=== PATIENT | female | born 1960 | race Caucasian/White ===

== ENCOUNTER 2020-03-20 10:48 | Outpatient (CLI) | payer OTHER, SELFPAY ==
--- NOTE | 2020-03-20 10:54 | MM_ITS ---
WS: [id number] BILATERAL DIGITAL SCREENING MAMMOGRAM WITH CAD CLINICAL INFORMATION: SCREENING HISTORY: Screening mammogram. No current complaints. COMPARISON: March 06, 2019 TECHNIQUE: Bilateral CC and MLO views. FINDINGS: Fatty-replaced breasts bilaterally. No suspicious focal mass, asymmetry, calcifications, or architecture manager ural distortion. No evidence of malignancy. MM/[place] [id number] IMPRESSION: BI-RADS: 1-Negative FOLLOW UP: 1 Year Follow-up Recommend return to annual screening mammography.
== END 2020-03-20 10:49 | disposition home or self-care (01) ==
LOC: RADSHAW 10:53
PROVIDERS: PCP Nurse Practitioner Family; Visit Provider Nurse Practitioner Family
DX: Z12.31 Encounter for screening mammogram for malignant neoplasm of breast (principal)
CPT/HCPCS: 77067

== ENCOUNTER 2021-03-26 12:37 | Outpatient (CLI) | payer OTHER, SELFPAY ==
--- NOTE | 2021-03-26 13:05 | MM_ITS ---
WS: [id number] BILATERAL SCREENING DIGITAL MAMMOGRAM WITH CAD HISTORY: SCREENING COMPARISON: 03/20/2020 and 03/06/2019 Bilateral CC and MLO views submitted. Computer aided detection analyzed. Breast composition: The breasts are almost entirely fatty. No suspicious masses, microcalcifications or architectural distortion. MM/[place] [id number] IMPRESSION: BI-RADS: 1-Negative FOLLOW UP: 1 Year Follow-up
== END 2021-03-26 12:38 | disposition home or self-care (01) ==
LOC: RADSHAW 12:40
PROVIDERS: PCP Nurse Practitioner Family; Visit Provider Nurse Practitioner Family
DX: Z12.31 Encounter for screening mammogram for malignant neoplasm of breast (principal)
CPT/HCPCS: 77067

== ENCOUNTER 2022-02-24 10:55 | Outpatient (CLI) | payer OTHER, SELFPAY ==
--- NOTE | 2022-02-24 11:13 | XR_ITS ---
WS: [id number] Exam: XR cervical spine 4-5V [id number] Date/Time of Exam: 02/24/2022 11:18 AM Reason For Exam: CERVICAL PAIN/CERVICALGIA No acute fracture or dislocation. Degenerative disc narrowing and spondylosis from C4 to C7. Facet DJ D at all levels. Degenerative retrolisthesis of C5 on C6. Posterior osteophytes involving the fourth through the 6 cervical vertebra. There is straightening and reversal of the normal cervical C curve. There is narrowing of the left intervertebral foramina at C2-3, C3-4, C4-5 and C5-6. Narrowing of the right neural foramina at C4-5 and C5-6. This is secondary to uncovertebral spurring. Normal paraspin al soft tissue structures. The odontoid is intact. XR/XR cervical spine 4-5V [id number] IMPRESSION: 1. No acute fracture or dislocation. 2. Straightening and reversal of the normal cervical C curve. 3. Moderately advanced degenerative changes. 4. Narrowing of multiple intervertebral foramina as detailed above. This is mos t marked on the left.
--- NOTE | 2022-02-24 11:13 | XR_ITS ---
WS: [email or web address] Exam: XR shoulder LT min 2V* [id number] Date/Time of Exam: 02/24/2022 11:18 AM Reason For Exam: PAIN IN LEFT SHOULDER No fracture or dislocation noted. There is arthrosis at the AC joint. Normal soft tissues. XR/XR shoulder LT min 2V* [id number] IMPRESSION: 1. AC joint arthrosis. 2. No fracture or dislocation.
== END 2022-02-24 10:56 | disposition home or self-care (01) ==
PROVIDERS: PCP Nurse Practitioner Family; Visit Provider Nurse Practitioner Family
DX: M25.512 Pain in left shoulder (principal); M54.2 Cervicalgia; M19.112 Post-traumatic osteoarthritis, left shoulder; T14.90XS Injury, unspecified, sequela; X58.XXXS Exposure to other specified factors, sequela; M47.812 Spondylosis without myelopathy or radiculopathy, cervical region
CPT/HCPCS: 72050; 73030

== ENCOUNTER → 2022-04-15 12:25 | Outpatient (BNVA) | payer OTHER, SELFPAY | PROVIDERS: PCP Nurse Practitioner Family; Visit Provider Internal Medicine Rheumatology | DX: M32.9 Systemic lupus erythematosus, unspecified (principal); Z79.899 Other long term (current) drug therapy; M19.90 Unspecified osteoarthritis, unspecified site | CPT/HCPCS: 36415; 80076; 81001; 82306; 82550; 82565; 82570; 84156; 85025; 86140 ==

== ENCOUNTER → 2022-08-16 11:37 | Outpatient (BNVA) | payer OTHER, SELFPAY | PROVIDERS: PCP Nurse Practitioner Family; Visit Provider Internal Medicine Rheumatology | DX: M32.9 Systemic lupus erythematosus, unspecified (principal); M19.90 Unspecified osteoarthritis, unspecified site; Z79.899 Other long term (current) drug therapy | CPT/HCPCS: 36415; 80076; 81001; 82565; 84156; 84550; 85025; 86140 ==

== ENCOUNTER 2023-05-06 06:22 | Outpatient (CLI) | payer OTHER, SELFPAY ==
--- NOTE | 2023-05-06 | MM_ITS ---
WS: [id number] Bilateral screening 3D tomosynthesis digital mammogram, 05/06/2023 Clinical Data: SCREENING Comparison: 03/26/2021, 03/20/2020, 03/06/2019, 07/16/2014, 06/02/2012, 11/06/2009, 03/05/2008. Findings: The breast parenchymal pattern shows fat replacement. No spiculated masses or clustered calcification s are seen. There are no secondary signs of carcinoma. There is a mole marker on the left breast. The re are small bilateral axillary lymph nodes. MM/[place] [id number] Impression: 1. Negative bilateral mammogram unchanged. 2. Recommend annual screening mammograms. BIRADS: 1-Negative FOLLOW UP: 1 Year Follow-up The CAD field checker was used.
== END 2023-05-06 06:23 | disposition home or self-care (01) ==
PROVIDERS: PCP Nurse Practitioner Family; Visit Provider Nurse Practitioner Family
DX: Z12.31 Encounter for screening mammogram for malignant neoplasm of breast (principal)
CPT/HCPCS: 77063; 77067

== ENCOUNTER → 2023-08-10 13:39 | Outpatient (BNVA) | payer OTHER, SELFPAY | PROVIDERS: PCP Nurse Practitioner Family; Visit Provider Internal Medicine Rheumatology | DX: Z79.899 Other long term (current) drug therapy (principal); M32.9 Systemic lupus erythematosus, unspecified; Z71.89 Other specified counseling; M19.90 Unspecified osteoarthritis, unspecified site | CPT/HCPCS: 36415; 80076; 82565; 85025; 86140 ==

== ENCOUNTER 2023-12-15 06:50 | Outpatient (CLI) | payer OTHER, SELFPAY ==
[2023-12-15 07:15] LABS: Basophils % 0.7 %; Eosinophils # 0.1 10^3/uL (0.0-0.8); Eosinophils % 1.9 %; Hematocrit 40.4 % (36-47); Lymphocytes # 1.2 10^3/uL (0.8-4.8); Lymphocytes % 21.3 %; Mean Corpuscular HGB Conc 34.7 g/dL (30-55); Mean Corpuscular Hemoglobin 31.9 pg (27-33); Monocytes # 0.5 10^3/uL (0.2-0.9); Monocytes % 8.4 %; Neutrophils # 3.93 10^3/uL (1.8-7.7); Neutrophils % 67.4 %; Nucleated Red Blood Cells % 0 %; Platelet Count 174 10^3/cmm (157-399); Red Blood Count 4.39 10^6/uL (3.85-5.65); Red Cell Distribution Width 12.5 % (12.1-15.1); White Blood Count 5.83 10^3/uL (3.29-11.43)
[2023-12-15 07:41] LABS: Alanine Aminotransferase 7 U/L (0-33); Alkaline Phosphatase 83 U/L (35-105); Aspartate Amino Transferase 16 U/L (0-32); Globulin 2.5 g/dL (1.3-4.6); Glomerular Filtration Rate 101.6 mL/min (90-130); Total Bilirubin 0.7 mg/dL (0.15-1.2); Total Protein 6.5 g/dL (6.6-8.7)
== END 2023-12-15 06:51 | disposition home or self-care (01) ==
LOC: LAB 06:52
PROVIDERS: PCP Nurse Practitioner Family; Visit Provider Internal Medicine Rheumatology
DX: M32.9 Systemic lupus erythematosus, unspecified (principal); Z79.899 Other long term (current) drug therapy
CPT/HCPCS: 36415; 80076; 82565; 85025; 86140

== ENCOUNTER 2024-08-16 06:54 | Outpatient (CLI) | payer OTHER, SELFPAY ==
[2024-08-16 07:53] LABS: Basophils % 0.8 %; Eosinophils # 0.1 10^3/uL (0.0-0.8); Eosinophils % 1.5 %; Hematocrit 39.9 % (36-47); Lymphocytes % 19.4 %; Mean Corpuscular HGB Conc 34.8 g/dL (30-55); Mean Corpuscular Hemoglobin 32.3 pg (27-33); Mean Corpuscular Volume 92.6 fl (85-98); Mean Platelet Volume 10.9 fL (7.4-10.4); Monocytes # 0.5 10^3/uL (0.2-0.9); Monocytes % 8.7 %; Neutrophils # 3.61 10^3/uL (1.8-7.7); Neutrophils % 69.4 %; Nucleated Red Blood Cells % 0 %; Platelet Count 154 10^3/cmm (157-399); Red Blood Count 4.31 10^6/uL (3.85-5.65); Red Cell Distribution Width 12.6 % (12.1-15.1)
[2024-08-16 08:15] LABS: Alanine Aminotransferase 7 U/L (0-33); Albumin Level 3.9 g/dL (3.5-5.2); Alkaline Phosphatase 84 U/L (35-105); Aspartate Amino Transferase 20 U/L (0-32); Globulin 2.1 g/dL (1.3-4.6); Glomerular Filtration Rate 101.3 mL/min (90-130); Total Bilirubin 0.6 mg/dL (0.15-1.2)
[2024-08-16 08:24] LABS: Erythrocyte Sedimentation Rate 1 mm/hr (0-15)
== END 2024-08-16 06:55 | disposition home or self-care (01) ==
LOC: LAB 06:54
PROVIDERS: PCP Nurse Practitioner Family; Visit Provider Internal Medicine Rheumatology
DX: Z79.899 Other long term (current) drug therapy (principal); M32.9 Systemic lupus erythematosus, unspecified
CPT/HCPCS: 36415; 80076; 82565; 85025; 85651; 86140

== ENCOUNTER 2024-10-17 07:17 | Outpatient (CLI) | payer OTHER, SELFPAY ==
--- NOTE | 2024-10-17 07:34 | XR_ITS ---
WS: [email or web address] XR hand LT min 3V* [id number] REASON FOR EXAM: PAIN IN LEFT HAND FINDINGS: No acute fracture or periosteal reaction. The joint spaces of the second through the fifth fingers are intact and relatively well preserved. Moderate joint space narrowing with moderate subchondral sclerosis and osteophytosis in the 3 joints of the thumb with mild subluxation at the MCP and CMC joint of the thumb. XR/XR hand LT min 3V* [id number] IMPRESSION: No acute abnormality. Osteoarthritis of the thumb as above.
== END 2024-10-17 07:18 | disposition home or self-care (01) ==
LOC: RAD 07:20
PROVIDERS: PCP Nurse Practitioner Family; Visit Provider Nurse Practitioner Family
DX: M19.042 Primary osteoarthritis, left hand (principal); M25.742 Osteophyte, left hand; S63.102A Unspecified subluxation of left thumb, initial encounter; X58.XXXA Exposure to other specified factors, initial encounter
CPT/HCPCS: 73130

== ENCOUNTER 2024-11-15 17:11 | Emergency (ER) | payer OTHER, SELFPAY ==
[2024-11-15 17:18] VITALS: BP 167/90; PULSE 79; RESP 18; TEMP 36.7; O2SAT 95
--- NOTE | 2024-11-15 19:43 | XRR_ITS ---
PROCEDURE INFORMATION: Exam: XR Left Shoulder Exam date and time: 11/15/2024 8:28 PM Age: 64 years old Clinical indication: Pain; Shoulder; Left; Additional info: Pain, limited rom TECHNIQUE: Imaging protocol: Radiologic exam of the left shoulder. Views: 2 or more views. COMPARISON: CR XR shoulder LT min 2V* [id number] 02/24/2022 11:17 AM FINDINGS: Bones/joints: No identified acute osseous abnormality. Moderate degenerative osteoarthritis of the acromioclavicular joint. Joint spaces otherwise aligned and maintained. Soft tissues: Normal. XR/XR shoulder LT min 2V* [id number] IMPRESSION: No identified acute osseous abnormality.
--- NOTE | 2024-11-15 19:43 | CTR_ITS ---
PROCEDURE INFORMATION: Exam: CT Head Without Contrast Exam date and time: 11/15/2024 8:23 PM Age: 64 years old Clinical indication: Pain; Headache not specified; Additional info: Left ue weakness, tingling for several weeks TECHNIQUE: Imaging protocol: Computed tomography of the head without contrast. Radiation optimization: All CT scans at this facility use at least one of these dose optimization techniques: automated exposure control; mA and/or kV adjustment per patient size (includes targeted exams where dose is matched to clinical indication); or iterative reconstruction. COMPARISON: CT cervical spin wo con* [id number] 11/15/2024 8:23 PM RADIATION DOSE METRICS: Total DLP (mGy-cm): 1021.2 FINDINGS: Brain: No focal hemorrhage or midline shift is identified. The ventricles and parenchyma show mild atrophy and chronic bicerebral white matter ischemic change. Mild falcine density is probably artifactual/physiologic. Cerebral ventricles: No ventriculomegaly or evidence of hydrocephalus. Paranasal sinuses: The partially assessed sinuses are grossly clear. Mastoid air cells: Visualized mastoid air cells are well aerated. Bones: No displaced skull fracture is noted. Soft tissues: Unremarkable. Vasculature: Diffuse vascular calcifications are present. CT/CT head wo con* [id number] IMPRESSION: 1. No acute intracranial abnormality. 2. Mild age-related changes.
--- NOTE | 2024-11-15 19:43 | CTR_ITS ---
PROCEDURE INFORMATION: Exam: CT Cervical Spine Without Contrast Exam date and time: 11/15/2024 8:23 PM Age: 64 years old Clinical indication: Neck pain; Additional info: Left upper extremity weakness, tingling TECHNIQUE: Imaging protocol: Computed tomography of the cervical spine without contrast. Radiation optimization: All CT scans at this facility use at least one of these dose optimization techniques: automated exposure control; mA and/or kV adjustment per patient size (includes targeted exams where dose is matched to clinical indication); or iterative reconstruction. COMPARISON: CR XR cervical spine 4-5V [id number] 02/24/2022 11:17 AM RADIATION DOSE METRICS: Total DLP (mGy-cm): 208.7 FINDINGS: Bones: No acute fracture. There is at least moderate cervical degenerative change most pronounced at C4-7 with loss of disc space and osteophyte formation. No jumped, locked or perched facets are visualized. No aggressive bone lesion is noted. A couple of levels of minimal chronic listhesis are probably related to facet arthropathy. Mild lower cervical lordotic reversal which may be due to muscle spasm or positioning. Lungs: Lung apices show no acute process. Vasculature: Advanced diffuse vascular calcification noted. Soft tissues: Unremarkable. CT/CT cervical spin wo con* [id number] IMPRESSION: 1. No acute fracture is seen in the cervical spine. 2. Moderate to severe lower cervical degenerative change as discussed. Other chronic findings above.
--- NOTE | 2024-11-15 19:43 | XRR_ITS ---
PROCEDURE INFORMATION: Exam: XR Chest Exam date and time: 11/15/2024 8:27 PM Age: 64 years old Clinical indication: Pain; Left-sided; Additional info: Cough, chest pain TECHNIQUE: Imaging protocol: Radiologic exam of the chest. Views: 1 view. COMPARISON: CT cervical spin wo con* [id number] 11/15/2024 8:23 PM FINDINGS: Lungs: Unremarkable. No consolidation. Pleural spaces: Unremarkable. No pleural effusion. No pneumothorax. Heart/Mediastinum: Unremarkable. No cardiomegaly. Bones/joints: Unremarkable. XR/XR chest 1V portable [id number] IMPRESSION: No visualized acute cardiopulmonary process.
--- NOTE | 2024-11-15 19:43 | ECG_ITS ---
[employer]* [facility] Test Date: 2024-11-15 Pat Name: Sharla Danielle Department: Room: Gender: Female Twx Operator: : 1960 Requested By: Mehran Carranza Order Number: [id number] Reading MD: MANUELA SHERMAN Measurements Intervals [place] Rate: 79 P: 67 DC: 176 QRS: 82 QRSD: 150 T: 38 QT: 435 QTc: 499 Interpretive Statements SINUS RHYTHM RIGHT BUNDLE BRANCH BLOCK [120+ ms QRS DURATION, UPRIGHT V1, 40+ ms S IN I/aVL/V4/V5/V6] No previous ECG available for comparison Electronically Signed On 11-17-2024 19:29:05 TRAINS DISPATCHER SUPERVISOR by MANUELA SHERMAN [id number]
--- NOTE | 2024-11-15 19:47 | ED_ITS ---
HPI - Extremity Problem 2 General: Chief complaint: Extremity Injury, Upper Stated complaint: slight cp,numbness in arm Time Seen by Provider: 11/15/24 19:11 Source: patient Mode of arrival: ambulatory Limitations: no limitations History of Present Illness: Patient is a 64-year-old female that presents to the emergency department with intermittent chest pain and pain in her left shoulder with intermittent tingling in her left arm. She states her arm does feel a bit weak but that may be due to the pain in her shoulder. She denies any numbness or tingling at this time. She states the symptoms have been going on for about a month. She does report intermittent chest pain. She denies any chest pain at this time. She denies any nausea or vomiting. She does report nasal congestion. She also reports pain in her neck. She denies any fall or traumatic injury. She denies any swelling to her extremities. She denies any chest pain at this time. She presents to the emergency department for further evaluation and treatment. Associated symptoms: Reports chest pain (Intermittent, none now); Deny fever(s) or rash Related Data Home Medications ?Medication ?Instructions ?Recorded ?Confirmed omeprazole 40 mg capsule,delayed 40 mg PO BID 01/07/20 05/16/24 release medical marijuana PO 04/15/22 05/16/24 simvastatin PO 04/15/22 05/16/24 buspirone 5 mg tablet 5 mg PO TID 04/21/22 4 fluoxetine 20 mg capsule (Prozac) 20 mg PO DAILY 05/1605/16/24 losartan 25 mg tablet 50 mg PO DAILY 05/16/2405/03 Previous Rx's ?Medication ?Instructions ?Recorded hydroxychloroquine 200 mg tablet 200 mg PO BID #180 ta bs 05/16/24 prednisone 10 mg tablet See Rx Instructions PO .COMP MORGNA 05/16/24 PRN joint pain #30 tabs methocarbamol 750 mg tablet 1,500 mg (2 x 750 mg) PO T ID PRN 11/15/24 muscle pain #30 tabs Allergies Allergy/AdvReac Type Severity Reaction Status Date / Time Sulfa (Sulfonamide Allergy Intermediate swell and Verified 12/14/23 12:59 Antibiotics) red morphine AdvReac Intermediate nausea and Verified 12/14/23 12:59 vomiting Review of Systems 2 General: Reports: 10 or more systems reviewed and unremarkable except in HPI and below Const: Denies: fever(s) or chills Eyes: Denies: change in vision, eye discharge or eye redness ENMT: Reports: nasal congestion ( Allergies ); Denies: throat pain or ear or mastoid pain Card: Reports: chest pain (Intermittent, none now); Denies: edema or swelling of feet/ankles Resp: Reports: non-productive cough (Intermittent); Denies: dyspnea or wheezing GI: Denies: abdominal pain, nausea or vomiting : Denies: flank pain, difficulty voiding or dysuria Musc: Reports: neck pain, extremity pain (Vntc-dcf-edkdano feeling in her left upper extremity intermittently) and limited range of motion (Limited range of motion left shoulder due to the pain and some weakness); Denies: back pain, joint swelling, joint redness or joint warmth Skin/Breast: Denies: rash or erythema Neuro: Reports: weakness in extremities (Left upper extremity due to pain in the shoulder); Denies: headache(s) Psych: Reports: anxiety (Intermittent, none now) Endo: Denies: polyuria or polydipsia Maldonado/Lymph: Denies: easy bruising or petechiae All/Imm: Denies: urticaria, throat swelling or tongue swelling PFSH ED 2 PFSH: Medical History Inflammatory arthritis SLE (systemic lupus erythematosus related syndrome) High risk medication use Immunization counseling Social History Smoking and tobacco/nicotine status: former use of tobacco/nicotine Physical Exam 2 Const: COMMON NORMALS: no acute distress, patient oriented x3 and alert E XAM LIMITATIONS: no altered mental status ORIENTATION/CONSCIOUSNESS: Yes awake HENMT: COMMON NORMALS: normocephalic, atraumatic, external ears normal and Normal external nose present HEAD & SCALP: normocephalic and atraumatic F JEREMY & SINUS: normal facial exam and face symmetric; no ecchymosis NOSE: Normal external nose present EXTERNAL EAR: Yes external ears normal THROAT: posterior oropharynx normal Eye: COMMON NORMALS: Equal, round and reactive pupils present, EOMs intact bilaterally and conjunctivae normal CONJUNCTIVA: Yes conjunctivae normal P UPIL: Yes Equal, round and reactive pupils present Neck/C-Spine: COMMON NORMALS: no meningeal signs CERVICAL SPINE: Yes cervical ROM normal, Yes Cervical spine tenderness (Mild at the base of the skull) and No step off deformity Lymph: LYMPHATIC: no lymphadenopathy noted Resp: COMMON NORMALS: normal respiratory effort, No retractions and clear to auscultation bilaterally AUSCULTATION: clear to auscultation bilaterally, no crackles, no rales, no rhonchi and no wheezes Cardio: COMMON NORMALS: regular rate and regular rhythm RATE: regular rate RHYTHM: regular rhythm GI: COMMON NORMALS: Normal to inspection, nondistended, normoactive bowel sounds present, Soft to palpation and non-tender PALPATION: Yes Soft to palpation : COMMON NORMALS: Yes no CVA tenderness BLADDER/KIDNEY EXAM: Yes no CVA tenderness Back/Pelvis: COMMON NORMALS: no CVA tenderness and thoraco-lumbar ROM normal Extremity: COMMON NORMALS: no pedal edema LEFT UPPER EXTREMITY: Yes shoulder joint (Tender to palpation left shoulder) Left shoulder joint: Yes ROM (Does report pain with range of motion) and Yes special tests Left shoulder special tests: Empty can test: Positive (For pain and weakness on the left) Neuro: COMMON NORMALS: patient oriented x3, CN's II-XII intact bilaterally, moves all extremities and no focal motor deficits SENSORIUM/ORIENTATION: Yes alert MENINGEAL SIGNS: Yes no meningeal signs COORDINATION/BALANCE: f [id number]-pu-zqdy test normal SPEECH: speech normal SENSORY EXAM: Yes extremities (Normal sensation to all extremities) MOTOR EXAM: 5/5 motor strength present throughout and Pronator motor function not present C OORDINATION: [id number]-uc-azku test normal Psych: COMMON NORMALS: mental status grossly normal and speech normal A TTITUDE: Yes calm SPEECH: Yes normal speech Skin: COMMON NORMALS: no rashes or lesions noted, no wounds and no petechiae GENERAL SKIN EXAM: no rashes or lesions noted Course 2 ED course: I discussed the case with Dr. Chiu who agrees with the assessment and plan. Vital Signs: Vital signs: Vital Signs Temperature 98.0 F 11/15/24 17:18 Pulse Rate 79 11/15/24 17:18 Respiratory Rate 18 11/15/24 17:18 Blood Pressure 167/90 11/15/24 17:18 Pulse Oximetry 95 11/15/24 17:18 Oxygen Delivery Me thod Room Air 11/15/24 17:18 MDM - Extremity (Nontraumatic) Medical Decision Making Patient reports she is feeling better and does not have any chest pain at this time. She did have some weakness in the left upper extremity with some numbness that has been intermittent going down her arm for the past several weeks. Head CT was negative for any stroke or mass. The cervical spine CT did show some degenerative changes of maybe the source of her symptoms. EKG did not show any ST elevation and the patient's troponin was negative. She denies any chest pain at this time. I recommended that she use the muscle relaxer as directed and follow-up with her primary care provider for further evaluation and treatment. I also advised that she follow-up with orthopedics for evaluation of her shoulder because I do think she has a rotator cuff injury based on a positive empty can test. I recommended that she also follow-up with her primary care provider for further evaluation and treatment. The patient expressed understanding. Lab Data I reviewed the patient's lab results. 11/15/24 20:50 11/15/24 20:50 Radiology Impressions Cervical Spine CT 11/15/24 19:43 IMPRESSION: 1. No acute fracture is seen in the cervical spine. 2. Moderate to severe lower cervical degenerative change as discussed. Other chronic findings above. Chest X-Ray 11/15/24 19:43 IMPRESSION: No visualized acute cardiopulmonary process. Head CT 11/15/24 19:43 IMPRESSION: 1. No acute intracranial abnormality. 2. Mild age-related changes. Shoulder X-Ray 11/15/24 19:43 IMPRESSION: No identified acute osseous abnormality. Laboratory Results WBC 7.19 10^3/uL (3.29-11.43) 11/15/24 20:50 RBC 4.32 10^6/uL (3.85-5.65) 11/15/24 20:50 Hgb 14.10 g/dL (11.27-16.99) 11/15/24 20:50 Hct 39.6 % (36-47) 11/15/24 20:50 MCV 91.7 fl (85-98) 11/15/24 20:50 MCH 32.6 pg (27-33) 11/15/24 20:50 MCHC 35.6 g/dL (30-55) 11/15/24 20:50 RDW 12.9 % (12.1-15.1) 11/15/24 20:50 Plt Count 175 10^3/cmm (157-399) 11/15/24 20:50 MPV 10.2 fL (7.4-10.4) 11/15/24 20:50 Neut % (Auto) 66.5 % 11/15/24 20:50 Lymph % (Auto) 25.0 % 11/15/24 20:50 Rich % (Auto) 6.4 % 11/15/24 20:50 Eos % (Auto) 1.4 % 11/15/24 20:50 Baso % (Auto) 0.6 % 11/15/24 20:50 Neut # (Auto) 4.78 10^3/uL (1.8-7.7) 11/15/24 20:50 Lymph # (Auto) 1.8 10^3/uL (0.8-4.8) 11/15/24 20:50 Rich # (Auto) 0.5 10^3/uL (0.2-0.9) 11/15/24 20:50 Eos # (Auto) 0.1 10^3/uL (0.0-0.8) 11/15/24 20:50 Baso # (Auto) 0.0 10^3/uL (0.0-0.1) 11/15/24 20:50 Nucleated RBC % (auto) 0 % 11/15/24 20:50 Nucleated RBCs # 0.0 /100WBC 11/15/24 20:50 Sodium 141 mmol/L (136-145) 11/15/24 20:50 Potassium 3.4 mmol/L (3.5-5.1) L 11/15/24 20:50 Chloride 102 mmol/L (98-107) 11/15/24 20:50 Carbon Dioxide 29 mmol/L (22-29) 11/15/24 20:50 Anion Gap 13.4 (5-19) 11/15/24 20:50 BUN 7 mg/dL (8-23) L 11/15/24 20:50 Creatinine 0.6 mg/dL (0.5-0.9) 11/15/24 20:50 GFR Calculation 101.3 mL/min (90-130) 11/15/24 20:50 Glucose 89 mg/dL (65-115) 11/15/24 20:50 Calculated Osmolality 289 mOsm/kg (285-295) 11/15/24 20:50 Calcium 9.1 mg/dL (8.5-10.5) 11/15/24 20:50 Total Bilirubin 0.6 mg/dL (0.15-1.2) 11/15/24 20:50 AST 25 U/L (0-32) 11/15/24 20:50 ALT 13 U/L (0-33) 11/15/24 20:50 Alkaline Phosphatase 87 U/L (35-105) 11/15/24 20:50 Troponin T Baseline < 6 ng/L (0-10) 11/15/24 20:50 Total Protein 6.8 g/dL (6.6-8.7) 11/15/24 20:50 Albumin 4.3 g/dL (3.5-5.2) 11/15/24 20:50 Globulin 2.5 g/dL (1.3-4.6) 11/15/24 20:50 Lipase 27 U/L (13-60) 11/15/24 20:50 Urine Color Yellow (Yellow) 11/15/24 19:59 Urine Appearance Clear (CLEAR) 11/15/24 19:59 Urine pH 5.5 (5-7) 11/15/24 19:59 Ur Specific [place] 1.012 (1.005-1.030) 11/15/24 19:59 Urine Protein Negative (Negative) 11/15/24 19:59 Urine Glucose (UA) Negative (Normal) 11/15/24 19:59 Urine Ketones Negative (Negative) 11/15/24 19:59 Urine Blood Negative (Negative) 11/15/24 19:59 Urine Nitrate Negative (Negative) 11/15/24 19:59 Urine Bilirubin Negative (Negative) 11/15/24 19:59 Urine Urobilinogen 0.2 mg/dL (Negative) 11/15/24 19:59 Ur Leukocyte Esterase Trace (Negative) A 11/15/24 19:59 Urine RBC 0-2 /hpf (0-2) 11/15/24 19:59 Urine WBC 0-5 /hpf (0-5) 11/15/24 19:59 Ur Squamous Epith Cells 0-5 /hpf (0-5) 11/15/24 19:59 Amorphous Sediment Not Reportable 11/15/24 19:59 Urine Bacteria None seen /hpf (NONE) 11/15/24 19:59 Hyaline Casts 0-4 /lpf H 11/15/24 19:59 Coronavirus (PCR) Negative (Negative) 11/15/24 19:52 Influenza A (PCR) Negative (Negative) 11/15/24 19:52 Influenza Type B (PCR) Negative (Negative) 11/15/24 19:52 RSV (PCR) Negative (Negative) 11/15/24 19:52 All radiology interpretation(s) finalized by discharge EKG Data EKG 1: I personally reviewed and interpreted this EKG as follows: EKG interpretation date: 11/15/24 EKG interpretation time: 20:00 Interpretation: Rate 79, sinus rhythm, right bundle branch block, normal axis, no ST elevation, depression or other signs of acute ischemia. Critical Care Time 2 Critical Care Time: Critical Care Time: No Discharge Plan Discharge Patient Disposition: Home Clinical Impression: Numbness and tingling in left arm, Cervical spine arthritis, Intermittent chest pain, Injury of left rotator cuff Condition: Stable Prescriptions: New methocarbamol 750 mg tablet 1,500 mg PO TID PRN (Reason: muscle pain) Qty: 30 0RF Rx Instructions: No alcohol use or driving with this medication. Discontinued cyclobenzaprine 10 mg tablet 10 mg PO TID PRN No Action omeprazole 40 mg capsule,delayed release(DR/EC) 40 mg PO BID losartan 25 mg tablet 50 mg PO DAILY simvastatin PO medical marijuana PO buspirone 5 mg tablet 5 mg PO TID fluoxetine [Prozac] 20 mg capsule 20 mg PO DAILY hydroxychloroquine 200 mg tablet 200 mg PO BID Qty: 180 1RF prednisone 10 mg tablet See Rx Instructions PO .COMPLEX PRN (Reason: joint pain) Qty: 30 1RF Rx Instructions: take 1 or 2 tab daily for 3-7 days prn joint pain flare PO PRN; Discharge Orders: Discharge ED (Routine); Ordered 11/15/24 Ordered By: Mehran Carranza Referrals: Marissa Montesinos MD [Physician] - 2 weeks Blancas,JOI Quintanilla [Primary Care Provider] - Discharge Diet: Usual diet Discharge Activity: Limit activity as instructed Patient Instructions: Rotator Cuff Injury (ED), Cervical Radiculopathy (ED), Rotator Cuff Injury Exercises (DC), Opioid Safety, Pain Management Activity Restrictions/Additional Instructions: Take medication as directed. Discontinue the cyclobenzaprine and been 10 taking the methocarbamol as directed. Your prescription was sent electronically to your preferred pharmacy. No alcohol use or driving with this medication. Avoid activities that will put strain on your left shoulder. Follow-up with your doctor in 1 week for recheck. Follow-up with orthopedics for further evaluation and treatment of your shoulder. Return to the emergency department with any worsening symptoms. Print Language: Jamaican Coding Level of Care Code ED Cabin Supervisor for Kip Plummer
[2024-11-15 20:09] LABS: Bilirubin Urine Negative (Negative); Blood Urine Negative (Negative); Glucose Urine UA Negative (Normal); Ketones Urine Negative (Negative); Leukocyte Esterase Urine Trace (Negative); Nitrate Urine Negative (Negative); Protein Urine Negative (Negative); Specific Gravity, Urine 1.012 (1.005-1.030); Urine Appearance Clear (CLEAR); Urine Color Yellow (Yellow); Urobilinogen Urine 0.2 mg/dL (Negative); pH Urine 5.5 (5-7)
[2024-11-15 20:11] LABS: Bacteria Urine None Seen /hpf; Hyaline Casts Urine 0-4 /lpf; RBC Urine 0-2 /hpf (0-2); Squamous Epithelial Cell Urine 0-5 /hpf (0-5); WBC Urine 0-5 /hpf (0-5)
[2024-11-15 20:18] LABS: Add Urine Microscopic? NO
[2024-11-15 20:21] LABS: Charge for UA Resulting for Rev
[2024-11-15 20:33] LABS: Influenza A NEGATIVE (Negative); Influenza B NEGATIVE (Negative); Respiratory Syncytial Virus Ce NEGATIVE (Negative); SARS-CoV-2 PCR NEGATIVE (Negative)
[2024-11-15 20:59] LABS: Basophils % 0.6 %; Eosinophils # 0.1 10^3/uL (0.0-0.8); Eosinophils % 1.4 %; Hematocrit 39.6 % (36-47); Lymphocytes # 1.8 10^3/uL (0.8-4.8); Mean Corpuscular HGB Conc 35.6 g/dL (30-55); Mean Corpuscular Hemoglobin 32.6 pg (27-33); Mean Corpuscular Volume 91.7 fl (85-98); Mean Platelet Volume 10.2 fL (7.4-10.4); Monocytes # 0.5 10^3/uL (0.2-0.9); Monocytes % 6.4 %; Neutrophils # 4.78 10^3/uL (1.8-7.7); Neutrophils % 66.5 %; Nucleated Red Blood Cells % 0 %; Platelet Count 175 10^3/cmm (157-399); Red Blood Count 4.32 10^6/uL (3.85-5.65); Red Cell Distribution Width 12.9 % (12.1-15.1); White Blood Count 7.19 10^3/uL (3.29-11.43)
[2024-11-15 21:15] LABS: Alanine Aminotransferase 13 U/L (0-33); Albumin Level 4.3 g/dL (3.5-5.2); Alkaline Phosphatase 87 U/L (35-105); Anion Gap 13.4 (5-19); Aspartate Amino Transferase 25 U/L (0-32); Blood Urea Nitrogen 7 mg/dL (8-23); Calcium 9.1 mg/dL (8.5-10.5); Carbon Dioxide 29 mmol/L (22-29); Chloride 102 mmol/L (98-107); Creatinine Clr Calc Pharmacy 86.4509; Globulin 2.5 g/dL (1.3-4.6); Glomerular Filtration Rate 101.3 mL/min (90-130); Glucose 89 mg/dL (65-115); Lipase 27 U/L (13-60); Osmolality Calculated 289 mOsm/kg (285-295); Potassium 3.4 mmol/L (3.5-5.1); Sodium 141 mmol/L (136-145); Total Bilirubin 0.6 mg/dL (0.15-1.2); Total Protein 6.8 g/dL (6.6-8.7)
[2024-11-15 21:17] LABS: Troponin(5th) Baseline < 6 ng/L (0-10)
[2024-11-15 23:12] VITALS: BP 144/62; PULSE 81; RESP 16; O2SAT 95
== END 2024-11-15 23:16 | disposition home or self-care (01) ==
PROVIDERS: Emergency Provider Physician Assistant; PCP Nurse Practitioner Family
DX: R20.0 Anesthesia of skin (principal); M47.812 Spondylosis without myelopathy or radiculopathy, cervical region; R07.9 Chest pain, unspecified; S46.002A Unspecified injury of muscle(s) and tendon(s) of the rotator cuff of left shoulder, initial encounter; Z11.52 Encounter for screening for COVID-19; Z87.891 Personal history of nicotine dependence; X58.XXXA Exposure to other specified factors, initial encounter
CPT/HCPCS: 12345; 36415; 70450; 71045; 72125; 73030; 80053; 81003; 83690; 84484; 85025; 87637; 93005; 99285

== ENCOUNTER 2025-03-26 06:43 | Outpatient (CLI) | payer OTHER, SELFPAY ==
[2025-03-26 07:36] LABS: Basophils % 0.4 %; Hematocrit 40.4 % (36-47); Lymphocytes # 0.5 10^3/uL (0.8-4.8); Lymphocytes % 9.2 %; Mean Corpuscular HGB Conc 34.9 g/dL (30-55); Mean Corpuscular Hemoglobin 31.9 pg (27-33); Mean Corpuscular Volume 91.4 fl (85-98); Monocytes # 0.1 10^3/uL (0.2-0.9); Monocytes % 1.9 %; Neutrophils % 87.9 %; Nucleated Red Blood Cells % 0 %; Platelet Count 174 10^3/cmm (157-399); Red Blood Count 4.42 10^6/uL (3.85-5.65); Red Cell Distribution Width 11.9 % (12.1-15.1); White Blood Count 5.23 10^3/uL (3.29-11.43)
[2025-03-26 07:58] LABS: Alanine Aminotransferase 8 U/L (0-33); Albumin Level 4.3 g/dL (3.5-5.2); Alkaline Phosphatase 94 U/L (35-105); Aspartate Amino Transferase 16 U/L (0-32); Bilirubin Direct 0.19 mg/dL (0.00-0.30); Globulin 3.1 g/dL (1.3-4.6); Glomerular Filtration Rate 124.6 mL/min (90-130); Total Bilirubin 0.5 mg/dL (0.15-1.2); Total Protein 7.4 g/dL (6.6-8.7)
[2025-03-26 08:12] LABS: Erythrocyte Sedimentation Rate 9 mm/hr (0-15)
[2025-03-26 08:15] LABS: Hepatitis B Core AB, Total Non-Reactive (Nonreactive); Hepatitis B Surface Antigen Non-Reactive (Nonreactive)
[2025-03-26 08:45] LABS: Hepatitis C Virus Antibody Non-Reactive (Nonreactive)
== END 2025-03-26 06:44 | disposition home or self-care (01) ==
PROVIDERS: PCP Nurse Practitioner Family; Visit Provider Internal Medicine Rheumatology
DX: Z79.899 Other long term (current) drug therapy (principal)
CPT/HCPCS: 36415; 80076; 82565; 85025; 85651; 86140; 86480; 86704; 86803; 87340

== ENCOUNTER → 2025-08-08 10:18 | Outpatient (BNVA) | payer OTHER, SELFPAY | PROVIDERS: PCP Nurse Practitioner Family; Visit Provider Internal Medicine Rheumatology | DX: Z79.899 Other long term (current) drug therapy (principal); Z71.89 Other specified counseling; M32.9 Systemic lupus erythematosus, unspecified | CPT/HCPCS: 36415; 80076; 82306; 82565; 85025; 85651; 86140 ==